=== PATIENT | female | born 1980 | race Hispanic/Latino ===

== ENCOUNTER 2021-10-10 07:43 | Inpatient (IN) | payer MEDICAID, OTHER ==
[2021-10-10] MEDS ORDERED: VANCOMYCIN 2,000 MG in SODIUM CHLORIDE 0.9% 500 ML 500 ML IV ONE (09:19)
[2021-10-10] MEDS ORDERED: SODIUM CHLORIDE 0.9% 1000 ML 1,000 ML IV ONE (09:21)
--- NOTE | 2021-10-10 09:32 | Emergency Department Report ---
- General Chief Complaint: Wound/Laceration Stated Complaint: SPIDER BITE/LEFT LEG Time Seen by Provider: 10/10/21 09:13 Source: patient, EMS Mode of arrival: Stretcher Limitations: No Limitations - History of Present Illness Initial Comments: Chief complaint: Weak, leg infection HPI: Is a 41-year-old female with history of diabetes mellitus who presents with spider bite 1 month ago to right lower extremity. She was treated at [facility] with oral antibiotics. She then followed up with her physician in [place] with a second course of antibiotics. She has persistent right leg infection. She did not see a spider personally. Initially she had "2 holes" in her lower leg Last night she became generally weak. She just felt generally unwell. She is does not take any medication. She explains that she "may have diabetes". 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 She lives with her and 3 children. She has been vaccinated against COVID-19. She lives in [facility]. She arrived via EMS. -: Gradual, month(s) (1 month) Location: other (Right lower extremity infection) Extremity Location: Right: Lower Leg Context: other (Suspected spider bite) Associated Symptoms: pain, other (Weakness malaise) - Related Data Allergies Allergy/AdvReac Type Severity Reaction Status Date / Time No Known Allergies Allergy Verified 10/10/21 09:25 ED Review of Systems ROS: Stated complaint: SPIDER BITE/LEFT LEG Other details as noted in HPI Comment: All other systems reviewed and negative Constitutional: malaise. denies: chills, fever Respiratory: denies: cough, shortness of breath Cardiovascular: denies: chest pain Gastrointestinal: denies: abdominal pain, nausea, vomiting Skin: rash, lesions ED Past Medical Hx - Past Medical History Previous Medical History?: Yes Hx Diabetes: Yes - Surgical History Past Surgical History?: No - Social History Smoking Status: Current Some Day Smoker Substance Use Type: None ED Physical Exam - General Limitations: No Limitations General appearance: in no apparent distress, lethargic, other (Pale) - Head Head exam: Present: atraumatic, normocephalic - Eye Eye exam: Present: normal appearance - ENT ENT exam: Present: mucous membranes dry - Neck Neck exam: Present: normal inspection, full ROM - Respiratory Respiratory exam: Present: normal lung sounds bilaterally. Absent: respiratory distress, wheezes, rales, rhonchi - Cardiovascular Cardiovascular Exam: Present: regular rate, normal rhythm, normal heart sounds. Absent: systolic murmur, diastolic murmur, rubs, gallop - GI/Abdominal GI/Abdominal exam: Present: soft. Absent: distended, tenderness, guarding, rebound - Extremities Exam Extremities exam: Present: other (Extremities without edema or deformity) - Neurological Exam Neurological exam: Present: alert, oriented X3 - Psychiatric Psychiatric exam: Present: depressed, flat affect - Skin Skin exam: Present: pallor, other (Large 15 cm x 8 cm area of erythema edema cerebral purulent ulcerations with large central ulcer with purulent drainage) ED Course Vital Signs 10/10/21 10/10/21 10/10/21 07:57 08:01 08:08 Temperature 98.6 F Pulse Rate 81 82 81 Respiratory 22 17 18 Rate Blood Pressure 106/64 O2 Sat by Pulse 96 99 Oximetry 10/10/21 10/10/21 10/10/21 08:15 08:31 08:45 Temperature Pulse Rate 84 87 85 Respiratory 15 17 16 Rate Blood Pressure 124/72 112/75 119/85 O2 Sat by Pulse 96 96 96 Oximetry 10/10/21 10/10/21 10/10/21 09:01 09:15 09:31 Temperature Pulse Rate 83 78 Respiratory 16 24 Rate Blood Pressure 128/83 116/73 114/75 O2 Sat by Pulse 97 98 97 Oximetry 10/10/21 10/10/21 10/10/21 09:45 09:46 10:01 Temperature Pulse Rate 75 Respiratory 16 Rate Blood Pressure 124/80 119/83 O2 Sat by Pulse 96 99 97 Oximetry 10/10/21 10/10/21 10/10/21 10:15 10:31 10:45 Temperature Pulse Rate 80 79 Respiratory 20 14 Rate Blood Pressure 131/91 114/96 122/98 O2 Sat by Pulse 96 97 96 Oximetry 10/10/21 10/10/21 10/10/21 11:01 11:15 11:31 Temperature Pulse Rate 84 80 85 Respiratory 18 17 22 Rate Blood Pressure 135/100 136/102 136/102 O2 Sat by Pulse 96 97 94 Oximetry ED Medical Decision Making - Lab Data Result diagrams: 10/10/21 10:05 10/10/21 10:05 - Radiology Data Radiology results: report reviewed Patient Name: MARY SOL Gender: Female Date of : 1980 Referring Provider: JOSEFA MAXWELL Organization: [facility] Accession Number: [id number] Requested Date: October 10, 2021 09:21 Report Status: Final Requested Procedure: 1 Procedure Description: XR tibia fibula 2V RT Modality: XR Findings Reporting MD: Peter Briones Dictation Time: October 10, 2021 08:57 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 COMPARISON: None available. FINDINGS: BONES and JOINT(S): No acute fracture or subluxation. Calcaneal enthesophytes are noted without other significant arthritis. SOFT TISSUES: No significant abnormality. ADDITIONAL FINDINGS: None. IMPRESSION: No radiographic evidence of a right leg infection. Please correlate with the clinical findings. Signer Name: Peetr Briones MD Signed: 10/10/2021 8:57 AM Workstation Name: [id number] - Medical Decision Making 1. Cellulitis with purulent ulceration: Radiograph without soft tissue gas. [place] 2 courses of outpatient antibiotics. Vancomycin initiated emergency department. 2. Transaminitis: Patient has taken Tylenol daily since June. 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 I spoke with toxicology energy consultant at poison control center. Physician physics and astronomy professor recommended Acetadote 21-hour protocol. If AST ALT remain greater than 100 then Acetadote should be continued for another 16 hours. Also if INR is elevated, Acetadote should be continued for 16 hours beyond the original protocol. Critical care attestation.: If time is entered above; I have spent that time in minutes in the direct care of this critically ill patient, excluding procedure time. ED Disposition Clinical Impression: Acetaminophen toxicity, Cellulitis of right leg, Ulcer of right leg Disposition: ADMITTED INPATIENT Is pt being admited?: Yes Does the pt Need Aspirin: No Condition: Stable
[2021-10-10] MEDS ORDERED: VANCOMYCIN PHARMACY TO DOSE IV SCH (10:00)
--- NOTE | 2021-10-10 10:00 | XRay Report ---
CHEST 1 VIEW 10/10/2021 9:23 AM INDICATION / CLINICAL INFORMATION: Suspected sepsis. COMPARISON: None available. FINDINGS: SUPPORT DEVICES: None. HEART / MEDIASTINUM: No significant abnormality. LUNGS / PLEURA: No significant pulmonary abnormality. No significant pleural effusion. No pneumothora x. ADDITIONAL FINDINGS: No significant additional findings. IMPRESSION: 1. No acute abnormality of the chest. Signer Name: Peter Briones MD Signed: 10/10/2021 9:56 AM Workstation Name: [id number]
--- NOTE | 2021-10-10 10:02 | XRay Report ---
RIGHT TIBIA/FIBULA 2 VIEWS INDICATION / CLINICAL INFORMATION: Right leg infection. COMPARISON: None available. FINDINGS: BONES and JOINT(S): No acute fracture or subluxation. Calcaneal enthesophytes are noted without other significant arthritis. SOFT TISSUES: No significant abnormality. ADDITIONAL FINDINGS: None. IMPRESSION: No radiographic evidence of a right leg infection. Please correlate with the clinical findings. Signer Name: Peter Briones MD Signed: 10/10/2021 9:57 AM Workstation Name: [id number]
[2021-10-10 10:31] LABS: Basophils % (Auto) 0.6 % (0.0-1.8); Eosinophils % (Auto) 0.1 % (0.0-4.3); Hematocrit 41.8 % (30.3-42.9); Lymphocytes # (Auto) 0.5 K/mm3 (1.2-5.4); Lymphocytes % (Auto) 10.9 % (13.4-35.0); Mean Corpuscular HGB Conc 31 % (30-34); Mean Corpuscular Volume 85 fl (79-97); Monocytes # (Auto) 0.3 K/mm3 (0.0-0.8); Monocytes % (Auto) 5.7 % (0.0-7.3); Red Blood Count 4.93 M/mm3 (3.65-5.03); Red Cell Distribution Width 15.5 % (13.2-15.2)
[2021-10-10 10:37] LABS: Platelet Count 33 K/mm3 (140-440)
[2021-10-10] MEDS ORDERED: HYDROcodone/ACETAMINOPHEN 5-325 MG TAB PO ONE (10:50)
[2021-10-10] MEDS ORDERED: IBUPROFEN 800 MG TAB PO ONE (10:50)
[2021-10-10 11:22] LABS: Alanine Aminotransferase 657 units/L (7-56); Albumin 3.8 g/dL (3.9-5); Blood Urea Nitrogen 11 mg/dL (7-17); Calcium 8.8 mg/dL (8.4-10.2); Hemolysis Index 4
[2021-10-10 11:32] LABS: BUN/Creatinine Ratio 18
[2021-10-10] MEDS ORDERED: HYDROmorphone 1 MG/1 ML INJ IV PRN (11:59)
[2021-10-10] MEDS ORDERED: oxyCODONE /ACETAMINOPHEN 5-325MG TAB PO PRN (11:59)
[2021-10-10] MEDS ORDERED: ALBUTEROL 2.5 MG/3 ML NEBU IH PRN (11:59)
[2021-10-10] MEDS ORDERED: ACETAMINOPHEN 325 MG TAB PO PRN (11:59)
--- NOTE | 2021-10-10 11:59 | History and Physical Report ---
History of Present Illness Chief complaint: My leg has a hole in it History of present illness: 41 YO Female with Obesity Hypoventilation Syndrome, DM, Nicotine Dependence presents to ED for evaluation. Patient is confused with diminished cognition at the time my evaluation and provides minimal history. Patient reports "my leg has a hole in it and I do not feel good". Additional history taken by EMS staff, ED staff, as well as the patient who was made available by telephone for interview. As per family the patient was found to have increased weakness and confusion this a.m. EMS was notified and upon arrival the patient was found to be in distress and subsequent transported to [facility] for further care and evaluation of the aforementioned symptoms. The patient was seen and evaluated in the emergency department. All lab and imaging studies reviewed. Patient found to have right lower extremity cellulitis with failure of outpatient oral antibiotic therapy, metabolic acidosis systemic plantar response syndrome, and elevated liver function test secondary to Tylenol toxicity. Poison control notified in the emergency department. Patient initiated on Acetadote 21-hour protocol. No further history is obtainable. Patient has diminished cognition at the time my evaluation but has a positive gag reflex and is able to protect her airway without difficulty. No prior admission for review. No medication listed at time of admission for reconciliation. Advanced care planning conducted in ED. Patient is fully vaccinated against COVID-19. Past History Past Medical History: diabetes, hypertension Past Surgical History: No surgical history, Other (Reviewed) Social history: , lives with family Family history: hypertension Medications and Allergies Allergies Allergy/AdvReac Type Severity Reaction Status Date / Time No Known Allergies Allergy Verified 10/10/21 09:25 Review of Systems ROS unobtainable: due to mental status Exam - Constitutional Vitals: Temp Pulse Resp BP Pulse Ox 98.6 F 85 22 136/102 94 10/10/21 08:08 10/10/21 11:31 10/10/21 11:31 10/10/21 11:31 10/10/21 11:31 General appearance: Present: mild distress, obese - EENT Eyes: Present: PERRL ENT: clear oral mucosa, hearing decreased - Neck Neck: Present: supple, normal ROM - Respiratory Respiratory effort: normal Respiratory: bilateral: CTA - Cardiovascular Heart Sounds: Present: S1 & S2. Absent: rub, click - Extremities Extremities: pulses symmetrical, No edema Extremity abnormal: edema, ulceration, erythema, other (Right lower extremity) Peripheral Pulses: within normal limits - Abdominal General gastrointestinal: Present: soft, non-tender, non-distended, normal bowel sounds Female genitourinary: Present: normal - Integumentary Integumentary: Present: clear, dry - Musculoskeletal Musculoskeletal: generalized weakness - Psychiatric Psychiatric: no appropriate mood/affect, no intact judgment & insight, no memory intact - Neurologic Neurologic: CNII-XII intact, no focal deficits, moves all extremities, no gait normal Results - Labs CBC & Chem 7: 10/10/21 10:05 10/10/21 10:05 Labs: Abnormal lab results 10/10/21 10/10/21 10/10/21 Range/Units 07:52 10:05 10:05 MCH 26 L (28-32) pg RDW 15.5 H (13.2-15.2) % Plt Count 33 L (140-440) K/mm3 Lymph % (Auto) 10.9 L (13.4-35.0) % Lymph # (Auto) 0.5 L (1.2-5.4) K/mm3 Seg Neutrophils % 82.7 H (40.0-70.0) % VBG pH (7.320-7.420) Carbon Dioxide 17 L (22-30) mmol/L Glucose 249 H (65-100) mg/dL POC Glucose 256 H (70-105) mg/dL AST 712 H (5-40) units/L ALT 657 H (7-56) units/L Albumin 3.8 L (3.9-5) g/dL 10/10/21 Range/Units 10:05 MCH (28-32) pg RDW (13.2-15.2) % Plt Count (140-440) K/mm3 Lymph % (Auto) (13.4-35.0) % Lymph # (Auto) (1.2-5.4) K/mm3 Seg Neutrophils % (40.0-70.0) % VBG pH 7.310 L (7.320-7.420) Carbon Dioxide (22-30) mmol/L Glucose (65-100) mg/dL POC Glucose (70-105) mg/dL AST (5-40) units/L ALT (7-56) units/L Albumin (3.9-5) g/dL Assessment and Plan - Patient Problems (1) Metabolic encephalopathy Current Visit: Yes Status: Acute Plan to address problem: Seizure precautions, aspiration precautions, fall precautions, neuro check, supportive care. (2) Metabolic acidosis Current Visit: Yes Status: Acute Plan to address problem: IV fluid resuscitation therapy, supportive care, continue medical management. (3) Systemic inflammatory response syndrome Current Visit: Yes Status: Acute Plan to address problem: CBC, CMP, IV antibiotic therapy, supportive care. (4) Nicotine dependence Current Visit: Yes Status: Acute Plan to address problem: Smoking cessation, supportive care. Behavior change counseling, +15 minutes. (5) Acetaminophen toxicity Current Visit: Yes Status: Acute Qualifiers: Encounter type: initial encounter Plan to address problem: Acetaminophen level, Acetadote protocol, repeat acetaminophen and LFT levels at 1000 hrs. in a.m. if AST/ALT greater than 100 or INR greater than 1.5 then repeat 16-hour Acetadote therapy. (6) Cellulitis of right leg Current Visit: Yes Status: Acute Plan to address problem: IV antibiotic therapy, supportive care, wound care consulted. Vancomycin, pharmacy dosing. Wound care consulted. (7) DVT prophylaxis Current Visit: Yes Status: Acute Plan to address problem: SCDs bilateral lower extremities while in bed (8) Advance care planning Current Visit: Yes Status: Acute Plan to address problem: Disease education conducted, care plan discussed, diagnoses discussed, prognosis discussed, patient family acknowledge understanding and agreement with care niesha n, +30 minutes.
[2021-10-10] MEDS ORDERED: ACETADOTE (ACETYLCYSTEINE IV) 15,000 MG in DEXTROSE 5% IN WATER 200 ML IV ONE (12:29)
[2021-10-10 12:52] LABS: Bilirubin,Urine SM (Negative); Blood,Urine NEG (Negative); Color,Urine Amber (Yellow); Mucus,Urine 1+ /HPF
[2021-10-10 12:55] LABS: Ictotest,Urine Negative (Negative)
[2021-10-10] MEDS ORDERED: ACETADOTE(ACETYLCYSTEINE IV) 5,000 MG in DEXTROSE 5% IN WATER 500 ML IV ONE (13:29)
[2021-10-10 14:32] LABS: INR 1.56 (0.87-1.13)
[2021-10-10 14:33] LABS: Partial Thromboplastin Time 31.6 Sec. (24.2-36.6)
[2021-10-10] MEDS ORDERED: hydrALAZINE 20 MG/1 ML INJ IV ONE (15:18)
[2021-10-10] MEDS: ONDANSETRON 4 MG/2 ML INJ IV PRN (15:40)
[2021-10-10] MEDS ORDERED: ACETADOTE(ACETYLCYSTEINE IV) 10,000 MG in DEXTROSE 5% IN WATER 1,000 ML IV ONE (17:29)
[2021-10-10] MEDS: FAMOTIDINE 20 MG TAB PO SCH (21:39)
[2021-10-10] MEDS: VANCOMYCIN 2,000 MG in SODIUM CHLORIDE 0.9% 500 ML 500 ML IV SCH (23:38)
[2021-10-11 05:39] LABS: Basophils % (Auto) 0.4 % (0.0-1.8); Eosinophils % (Auto) 0.3 % (0.0-4.3); Lymphocytes # (Auto) 0.7 K/mm3 (1.2-5.4); Mean Corpuscular HGB Conc 31 % (30-34); Mean Corpuscular Volume 85 fl (79-97); Monocytes # (Auto) 0.5 K/mm3 (0.0-0.8); Monocytes % (Auto) 7.9 % (0.0-7.3); Red Blood Count 5.13 M/mm3 (3.65-5.03); Red Cell Distribution Width 15.8 % (13.2-15.2)
[2021-10-11 05:55] LABS: Hematocrit 43.5 % (30.3-42.9); Hemoglobin 13.5 gm/dl (10.1-14.3); Platelet Count 72 K/mm3 (140-440)
[2021-10-11 05:59] LABS: Blood Urea Nitrogen 7 mg/dL (7-17); Calcium 7.7 mg/dL (8.4-10.2); Hemolysis Index 12
[2021-10-11 06:01] LABS: BUN/Creatinine Ratio 23
[2021-10-11] MEDS: FAMOTIDINE 20 MG TAB PO SCH ×2 (10:13→22:45)
[2021-10-11] MEDS: POTASSIUM CHLORIDE ER 20 MEQ TAB PO SCH ×2 (10:13→15:04)
[2021-10-11] MEDS: VANCOMYCIN 2,000 MG in SODIUM CHLORIDE 0.9% 500 ML 500 ML IV SCH ×2 (10:13→22:45)
[2021-10-11 10:46] LABS: INR 2.69 (0.87-1.13)
[2021-10-11 10:53] LABS: Albumin 3.3 g/dL (3.9-5); Bilirubin,Direct 1.8 mg/dL (0-0.2)
[2021-10-11 10:54] LABS: Albumin 3.3 g/dL (3.9-5); Blood Urea Nitrogen 7 mg/dL (7-17); Hemolysis Index 4
[2021-10-11 10:59] LABS: BUN/Creatinine Ratio 23
[2021-10-11 11:09] LABS: Alanine Aminotransferase 1856 units/L (7-56)
--- NOTE | 2021-10-11 12:18 | Progress Note ---
Subjective Date of service: 10/11/21 Interval history: 41 YO Female with Obesity Hypoventilation Syndrome, DM, Nicotine Dependence presents to ED for evaluation. Patient is confused with diminished cognition at the time my evaluation and provides minimal history. Patient reports "my leg has a hole in it and I do not feel good". Additional history taken by EMS staff, ED staff, as well as the patient who was made available by telephone for interview. As per family the patient was found to have increased weakness and confusion this a.m. EMS was notified and upon arrival the patient was found to be in distress and subsequent transported to [facility] for further care and evaluation of the aforementioned symptoms. The patient was seen and evaluated in the emergency department. All lab and imaging studies reviewed. Patient found to have right lower extremity cellulitis with failure of outpatient oral antibiotic therapy, metabolic acidosis systemic plantar response syndrome, and elevated liver function test secondary to Tylenol toxicity. Poison control notified in the emergency department. Patient initiated on Acetadote 21-hour protocol. No further history is obtainable. Patient has diminished cognition at the time my evaluation but has a positive gag reflex and is able to protect her airway without difficulty. No prior admission for review. No medication listed at time of admission for reconciliation. Advanced care planning conducted in ED. Patient is fully vaccinated against COVID-19. 10/11 patient is resting in the bed, not in any distress, complains of pain in the right leg, she denies any fever or chills, denies nausea vomiting or abdominal pain. Denies dysuria. Lab results reviewed. Assessment and plan Cellulitis right leg Patient states that she had a spider bite in June on her right leg and since then it has progressed to the present state She states she is took antibiotics as an outpatient with no improvement Wound care consulted She was started on vancomycin IV We will add Rocephin We will request ID consult Blood cultures no growth in 24 hours Metabolic encephalopathy Resolved Patient is alert and oriented x3 Acetaminophen toxicity Mild Transaminitis/elevated INR/thrombocytopenia No old labs to compare with Suspect secondary to acetaminophen toxicity Monitor LFTs Consider GI consult if not trending down Platelets [id number] today Hypokalemia potassium supplements ordered Monitor electrolytes Tobacco abuse Smoking cessation counseling was done DVT prophylaxis SCDs Objective - Constitutional Vitals: Vital Signs - 12hr 10/11/21 10/11/21 04:00 10:00 Temperature 98.3 F Pulse Rate 94 H O2 Sat by Pulse 98 Oximetry General appearance: Present: no acute distress, well-nourished - EENT Eyes: PERRL, EOM intact ENT: hearing intact, clear oral mucosa - Neck Neck: supple, normal ROM - Respiratory Respiratory effort: normal Respiratory: bilateral: CTA - Cardiovascular Rhythm: regular Heart Sounds: Present: S1 & S2 Extremities: abnormal (Dressing with pressure wrap on the right leg) - Gastrointestinal General gastrointestinal: Present: soft, non-tender Rectal Exam: deferred - Integumentary Integumentary: clear - Neurologic Neurologic: focal deficits, moves all extremities - Psychiatric Psychiatric: appropriate mood/affect - Labs CBC & Chem 7: 10/11/21 04:53 10/11/21 10:19 Labs: Abnormal lab results 10/10/21 10/10/21 10/10/21 Range/Units 13:22 13:22 13:22 RBC (3.65-5.03) M/mm3 Hct (30.3-42.9) % MCH (28-32) pg RDW (13.2-15.2) % Plt Count (140-440) K/mm3 Lymph % (Auto) (13.4-35.0) % [place] % (Auto) (0.0-7.3) % Lymph # (Auto) (1.2-5.4) K/mm3 Seg Neutrophils % (40.0-70.0) % PT 20.2 H (12.2-14.9) Sec. INR 1.56 H (0.87-1.13) Sodium (137-145) mmol/L Potassium (3.6-5.0) mmol/L Carbon Dioxide (22-30) mmol/L Creatinine (0.6-1.2) mg/dL Glucose (65-100) mg/dL POC Glucose (70-105) mg/dL Lactic Acid 3.10 H* (0.7-2.0) mmol/L Calcium (8.4-10.2) mg/dL Total Bilirubin (0.1-1.2) mg/dL Direct Bilirubin (0-0.2) mg/dL AST (5-40) units/L ALT (7-56) units/L Alkaline Phosphatase (35-129) units/L Albumin (3.9-5) g/dL Ur Specific [place] (1.003-1.030) Salicylates (2.8-20.0) mg/dL Acetaminophen 35.5 H (10.0-30.0) ug/mL 10/10/21 10/10/21 10/10/21 Range/Units 13:22 18:04 23:46 RBC (3.65-5.03) M/mm3 Hct (30.3-42.9) % MCH (28-32) pg RDW (13.2-15.2) % Plt Count (140-440) K/mm3 Lymph % (Auto) (13.4-35.0) % [place] % (Auto) (0.0-7.3) % Lymph # (Auto) (1.2-5.4) K/mm3 Seg Neutrophils % (40.0-70.0) % PT (12.2-14.9) Sec. INR (0.87-1.13) Sodium (137-145) mmol/L Potassium (3.6-5.0) mmol/L Carbon Dioxide (22-30) mmol/L Creatinine (0.6-1.2) mg/dL Glucose (65-100) mg/dL POC Glucose 217 H 185 H (70-105) mg/dL Lactic Acid (0.7-2.0) mmol/L Calcium (8.4-10.2) mg/dL Total Bilirubin (0.1-1.2) mg/dL Direct Bilirubin (0-0.2) mg/dL AST (5-40) units/L ALT (7-56) units/L Alkaline Phosphatase (35-129) units/L Albumin (3.9-5) g/dL Ur Specific [place] (1.003-1.030) Salicylates < 0.3 L (2.8-20.0) mg/dL Acetaminophen (10.0-30.0) ug/mL 10/10/21 10/11/21 10/11/21 Range/Units Unknown 04:53 04:53 RBC 5.13 H (3.65-5.03) M/mm3 Hct 43.5 H (30.3-42.9) % MCH 26 L (28-32) pg RDW 15.8 H (13.2-15.2) % Plt Count 72 L D (140-440) K/mm3 Lymph % (Auto) 11.0 L (13.4-35.0) % [place] % (Auto) 7.9 H (0.0-7.3) % Lymph # (Auto) 0.7 L (1.2-5.4) K/mm3 Seg Neutrophils % 80.4 H (40.0-70.0) % PT (12.2-14.9) Sec. INR (0.87-1.13) Sodium (137-145) mmol/L Potassium 3.0 L D (3.6-5.0) mmol/L Carbon Dioxide 19 L (22-30) mmol/L Creatinine 0.3 L (0.6-1.2) mg/dL Glucose 119 H (65-100) mg/dL POC Glucose (70-105) mg/dL Lactic Acid (0.7-2.0) mmol/L Calcium 7.7 L (8.4-10.2) mg/dL Total Bilirubin (0.1-1.2) mg/dL Direct Bilirubin (0-0.2) mg/dL AST (5-40) units/L ALT (7-56) units/L Alkaline Phosphatase (35-129) units/L Albumin (3.9-5) g/dL Ur Specific [place] 1.053 H (1.003-1.030) Salicylates (2.8-20.0) mg/dL Acetaminophen (10.0-30.0) ug/mL 10/11/21 10/11/21 10/11/21 Range/Units 06:34 10:19 10:19 RBC (3.65-5.03) M/mm3 Hct (30.3-42.9) % MCH (28-32) pg RDW (13.2-15.2) % Plt Count (140-440) K/mm3 Lymph % (Auto) (13.4-35.0) % [place] % (Auto) (0.0-7.3) % Lymph # (Auto) (1.2-5.4) K/mm3 Seg Neutrophils % (40.0-70.0) % PT 30.8 H (12.2-14.9) Sec. INR 2.69 H (0.87-1.13) Sodium 136 L (137-145) mmol/L Potassium 3.3 L (3.6-5.0) mmol/L Carbon Dioxide 18 L (22-30) mmol/L Creatinine 0.3 L (0.6-1.2) mg/dL Glucose 122 H (65-100) mg/dL POC Glucose 109 H (70-105) mg/dL Lactic Acid (0.7-2.0) mmol/L Calcium 8.0 L (8.4-10.2) mg/dL Total Bilirubin 2.30 H (0.1-1.2) mg/dL Direct Bilirubin (0-0.2) mg/dL AST 1290 H (5-40) units/L ALT 1856 H (7-56) units/L Alkaline Phosphatase 137 H (35-129) units/L Albumin 3.3 L (3.9-5) g/dL Ur Specific [place] (1.003-1.030) Salicylates (2.8-20.0) mg/dL Acetaminophen (10.0-30.0) ug/mL 10/11/ Range/Units 10:19 RBC (3.65-5.03) M/mm3 Hct (30.3-42.9) % MCH (28-32) pg RDW (13.2-15.2) % Plt Count (140-440) K/mm3 Lymph % (Auto) (13.4-35.0) % [place] % (Auto) (0.0-7.3) % Lymph # (Auto) (1.2-5.4) K/mm3 Seg Neutrophils % (40.0-70.0) % PT (12.2-14.9) Sec. INR (0.87-1.13) Sodium (137-145) mmol/L Potassium (3.6-5.0) mmol/L Carbon Dioxide (22-30) mmol/L Creatinine (0.6-1.2) mg/dL Glucose (65-100) mg/dL POC Glucose (70-105) mg/dL Lactic Acid (0.7-2.0) mmol/L Calcium (8.4-10.2) mg/dL Total Bilirubin 2.30 H (0.1-1.2) mg/dL Direct Bilirubin 1.8 H (0-0.2) mg/dL AST 1298 H (5-40) units/L ALT 1896 H (7-56) units/L Alkaline Phosphatase 134 H (35-129) units/L Albumin 3.3 L (3.9-5) g/dL Ur Specific [place] (1.003-1.030) Salicylates (2.8-20.0) mg/dL Acetaminophen (10.0-30.0) ug/mL
--- NOTE | 2021-10-11 12:53 | Consultation ---
History of Present Illness - Reason for Consult Consult date: 10/11/21 cellulitis Requesting physician: ARIANA PRO - History of Present Illness The patient is a 41-year-old female with diabetes came into the emergency room with complaints of worsening infection in her right leg. She reports a possible spider bite about a month ago the right leg, treated developed an infection and [place] [facility] [place] then received a second round of antibiotics from her PCP. Due to worsening, she came here. Labs revealed normal WBC, platelet count is low. INR was found to be 1.5, worsened to 2.6 today, LFTs with AST 712, ALT 657, albumin 3.8, bilirubin 0.6. Lactic acid 3.1. AST and ALT have continued to worsen, bilirubin up to 2.3. Tylenol level was found to be 35.5 (normal range 10-30). Was initiated on N-acetylcysteine. ID was consulted for cellulitis management. She was not going to wound care or taking her DM meds well. She does report taking a lot of tylenol over the last few weeks. Review of Systems: General: no fevers,chills or rigors HEENT: no new visual disturbance Respiratory: No cough, sputum, hemoptysis or shortness of breath Cardiovascular: No chest pain, syncope Gastrointestinal: No nausea, vomiting or diarrhea Genitourinary: No dysuria or hematuria Musculoskeletal: No new or worsening neck pain or back pain Neurologic: No headaches, seizures Hematologic: No easy bruising or bleeding Endocrine: No night sweats or acute weight loss Skin: negative for rash, jaundice Psychiatric: No suicidal or homicidal ideation Past History Past Medical History: diabetes, hypertension Past Surgical History: No surgical history, Other (Reviewed) Social history: , lives with family Family history: hypertension Medications and Allergies Allergies Allergy/AdvReac Type Severity Reaction Status Date / Time No Known Allergies Allergy Verified 10/10/21 09:25 Active Meds: Active Medications Albuterol (Albuterol 2.5 Mg/3 Ml Nebu) 2.5 mg IH Q4HRT PRN PRN Reason: Shortness Of Breath Famotidine (Famotidine 20 Mg Tab) 20 mg PO BID DEANDRE Last Admin: 10/11/21 10:13 Dose: 20 mg Documented by: Vancomycin HCl 2,000 mg/ (Sodium Chloride) 540 mls @ 250 mls/hr IV Q12H [facility] Last Admin: 10/11/21 10:13 Dose: 250 mls/hr Documented by: Ceftriaxone Sodium (Rocephin/Ns 1 Gm/50 Ml) 1 gm in 50 mls @ 100 mls/hr IV Q24H [facility]; Protocol Ondansetron HCl (Ondansetron 4 Mg/2 Ml Inj) 4 mg IV Q8H PRN PRN Reason: Nausea And Vomiting Last Admin: 10/10/21 15:40 Dose: 4 mg Documented by: Oxycodone/Acetaminophen (Oxycodone /Acetaminophen 5-325mg Tab) 1 tab PO Q4HR PRN PRN Reason: Pain, Moderate (4-6) Potassium Chloride (Potassium Chloride Er 20 Meq Tab) 40 meq PO Q4H [facility] Stop: 10/11/21 13:01 Last Admin: 10/11/21 10:13 Dose: 40 meq Documented by: Sodium Chloride (Sodium Chloride 0.9% 10 Ml Flush Syringe) 10 ml IV BID [facility] Last Admin: 10/11/21 10:13 Dose: 10 ml Documented by: Sodium Chloride (Sodium Chloride 0.9% 10 Ml Flush Syringe) 10 ml IV PRN PRN PRN Reason: LINE FLUSH Physical Examination - Physical Exam Narrative exam: Physical Exam: Constitutional: Alert, cooperative. No acute distress Head, Ears, Nose: Normocephalic, atraumatic. External ears, nose normal Eyes: Conjunctivae/corneas clear. No icterus. No ptosis. Neck: Supple, no meningeal signs Cardiovascular: S1, S2 + Respiratory: Good air entry, clear to auscultation bilaterally GI: Soft, non-tender; bowel sounds normal. No peritoneal signs Musculoskeletal: Right foot with superficial wound, erythema around it no obvious purulence. Dressing + Skin: No rash or abscess Hem/Lymphatic: No palpable cervical or supraclavicular nodes. No lymphangitis Psych: Mood ok. Affect normal Neurological: Awake, alert, oriented. No gross abnormality - Constitutional Vitals: Vital Signs Temp Pulse Resp BP Pulse Ox 97.5 F L 94 H 10 L 139/89 98 10/11/21 12:00 10/11/21 10:00 10/10/21 21:31 10/10/21 21:31 10/11/21 04:00 Temperature -Last 24 Hours Temperature 97.5 F Temperature 97.6 F Temperature 98.3 F Temperature 98.6 F Temperature 98.4 F Temperature 97.8 F Results - Labs CBC & Chem 7: 10/11/21 04:53 10/11/21 10:19 Labs: Abnormal lab results 10/10/21 10/10/21 10/10/21 Range/Units 13:22 13:22 13:22 RBC (3.65-5.03) M/mm3 Hct (30.3-42.9) % MCH (28-32) pg RDW (13.2-15.2) % Plt Count (140-440) K/mm3 Lymph % (Auto) (13.4-35.0) % Amador % (Auto) (0.0-7.3) % Lymph # (Auto) (1.2-5.4) K/mm3 Seg Neutrophils % (40.0-70.0) % PT 20.2 H (12.2-14.9) Sec. INR 1.56 H (0.87-1.13) Sodium (137-145) mmol/L Potassium (3.6-5.0) mmol/L Carbon Dioxide (22-30) mmol/L Creatinine (0.6-1.2) mg/dL Glucose (65-100) mg/dL POC Glucose (70-105) mg/dL Lactic Acid 3.10 H* (0.7-2.0) mmol/L Calcium (8.4-10.2) mg/dL Total Bilirubin (0.1-1.2) mg/dL Direct Bilirubin (0-0.2) mg/dL AST (5-40) units/L ALT (7-56) units/L Alkaline Phosphatase (35-129) units/L Albumin (3.9-5) g/dL Ur Specific Sealy (1.003-1.030) Salicylates (2.8-20.0) mg/dL Acetaminophen 35.5 H (10.0-30.0) ug/mL 10/10/21 10/10/21 10/10/21 Range/Units 13: 18:04 23:46 RBC (3.65-5.03) M/mm3 Hct (30.3-42.9) % MCH (28-32) pg RDW (13.2-15.2) % Plt Count (140-440) K/mm3 Lymph % (Auto) (13.4-35.0) % Amador % (Auto) (0.0-7.3) % Lymph # (Auto) (1.2-5.4) K/mm3 Seg Neutrophils % (40.0-70.0) % PT (12.2-14.9) Sec. INR (0.87-1.13) Sodium (137-145) mmol/L Potassium (3.6-5.0) mmol/L Carbon Dioxide (22-30) mmol/L Creatinine (0.6-1.2) mg/dL Glucose (65-100) mg/dL POC Glucose 217 H 185 H (70-105) mg/dL Lactic Acid (0.7-2.0) mmol/L Calcium (8.4-10.2) mg/dL Total Bilirubin (0.1-1.2) mg/dL Direct Bilirubin (0-0.2) mg/dL AST (5-40) units/L ALT (7-56) units/L Alkaline Phosphatase (35-129) units/L Albumin (3.9-5) g/dL Ur Specific Sealy (1.003-1.030) Salicylates < 0.3 L (2.8-20.0) mg/dL Acetaminophen (10.0-30.0) ug/mL 10/10/21 10/11/21 10/11/21 Range/Units Unknown 04:53 04:53 RBC 5.13 H (3.65-5.03) M/mm3 Hct 43.5 H (30.3-42.9) % MCH 26 L (28-32) pg RDW 15.8 H (13.2-15.2) % Plt Count 72 L D (140-440) K/mm3 Lymph % (Auto) 11.0 L (13.4-35.0) % Amador % (Auto) 7.9 H (0.0-7.3) % Lymph # (Auto) 0.7 L (1.2-5.4) K/mm3 Seg Neutrophils % 80.4 H (40.0-70.0) % PT (12.2-14.9) Sec. INR (0.87-1.13) Sodium (137-145) mmol/L Potassium 3.0 L D (3.6-5.0) mmol/L Carbon Dioxide 19 L (22-30) mmol/L Creatinine 0.3 L (0.6-1.2) mg/dL Glucose 119 H (65-100) mg/dL POC Glucose (70-105) mg/dL Lactic Acid (0.7-2.0) mmol/L Calcium 7.7 L (8.4-10.2) mg/dL Total Bilirubin (0.1-1.2) mg/dL Direct Bilirubin (0-0.2) mg/dL AST (5-40) units/L ALT (7-56) units/L Alkaline Phosphatase (35-129) units/L Albumin (3.9-5) g/dL Ur Specific [place] 1.053 H (1.003-1.030) Salicylates (2.8-20.0) mg/dL Acetaminophen (10.0-30.0) ug/mL 10/11/21 10/11/21 10/11/21 Range/Units 06:34 10:19 10:19 RBC (3.65-5.03) M/mm3 Hct (30.3-42.9) % MCH (28-32) pg RDW (13.2-15.2) % Plt Count (140-440) K/mm3 Lymph % (Auto) (13.4-35.0) % Amador % (Auto) (0.0-7.3) % Lymph # (Auto) (1.2-5.4) K/mm3 Seg Neutrophils % (40.0-70.0) % PT 30.8 H (12.2-14.9) Sec. INR 2.69 H (0.87-1.13) Sodium 136 L (137-145) mmol/L Potassium 3.3 L (3.6-5.0) mmol/L Carbon Dioxide 18 L (22-30) mmol/L Creatinine 0.3 L (0.6-1.2) mg/dL Glucose 122 H (65-100) mg/dL POC Glucose 109 H (70-105) mg/dL Lactic Acid (0.7-2.0) mmol/L Calcium 8.0 L (8.4-10.2) mg/dL Total Bilirubin 2.30 H (0.1-1.2) mg/dL Direct Bilirubin (0-0.2) mg/dL AST 1290 H (5-40) units/L ALT 1856 H (7-56) units/L Alkaline Phosphatase 137 H (35-129) units/L Albumin 3.3 L (3.9-5) g/dL Ur Specific Se[place] (1.003-1.030) Salicylates (2.8-20.0) mg/dL Acetaminophen (10.0-30.0) ug/mL 10/11/21 Range/Units 10:19 RBC (3.65-5.03) M/mm3 Hct (30.3-42.9) % MCH (28-32) pg RDW (13.2-15.2) % Plt Count (140-440) K/mm3 Lymph % (Auto) (13.4-35.0) % Amador % (Auto) (0.0-7.3) % Lymph # (Auto) (1.2-5.4) K/mm3 Seg Neutrophils % (40.0-70.0) % PT (12.2-14.9) Sec. INR (0.87-1.13) Sodium (137-145) mmol/L Potassium (3.6-5.0) mmol/L Carbon Dioxide (22-30) mmol/L Creatinine (0.6-1.2) mg/dL Glucose (65-100) mg/dL POC Glucose (70-105) mg/dL Lactic Acid (0.7-2.0) mmol/L Calcium (8.4-10.2) mg/dL Total Bilirubin 2.30 H (0.1-1.2) mg/dL Direct Bilirubin 1.8 H (0-0.2) mg/dL AST 1298 H (5-40) units/L ALT 1896 H (7-56) units/L Alkaline Phosphatase 134 H (35-129) units/L Albumin 3.3 L (3.9-5) g/dL Ur Specific Se[place] (1.003-1.030) Salicylates (2.8-20.0) mg/dL Acetaminophen (10.0-30.0) ug/mL - Imaging and Cardiology Chest x-ray: report reviewed, image reviewed (no pneumonia) Assessment and Plan Cultures: 10/10/2021 blood culture: No growth A/P: 41-year-old female with diabetes came into the emergency room with complaints of worsening infection in her right leg. She reports a possible spider bite about a month ago the right leg, treated developed an infection and was [place] [facility] [place] then received a second round of antibiotics from her PCP: #RLE cellulitis: Superficial wound present, nonhealing probably due to poorly controlled diabetes. X-ray without any evidence of long bone osteomyelitis. #Acute hepatic failure: likely from Tylenol toxicity. Was initiated on N- acetylcysteine. #Acute thrombocytopenia #Diabetes, poorly controlled Recs: -Continue ceftriaxone, vancomycin for now. Will also need wound care as outpt -CK ordered -Monitor LFTs (including bilirubin, albumin), f/u GI consult, if continues to worsen, may need transfer to a transplant center Balaji Ugalde MD, FACP, [facility] ([facility] O: [phone] F: [phone]
[2021-10-11] MEDS ORDERED: oxyCODONE /ACETAMINOPHEN 5-325MG TAB PO PRN (14:00)
[2021-10-11] MEDS: cefTRIAXone/NS 1 GM/50 ML 1 GM/50 ML BAG IV SCH (15:04)
[2021-10-11] MEDS ORDERED: ACETADOTE(ACETYLCYSTEINE IV) 10,000 MG in DEXTROSE 5% IN WATER 1,000 ML IV ONE (18:30)
[2021-10-11] MEDS: ONDANSETRON 4 MG/2 ML INJ IV PRN (23:05)
[2021-10-12 05:25] LABS: Hematocrit 43.7 % (30.3-42.9); Hemoglobin 13.6 gm/dl (10.1-14.3); Mean Corpuscular HGB Conc 31 % (30-34); Mean Corpuscular Volume 84 fl (79-97); Platelet Count 112 K/mm3 (140-440); Red Blood Count 5.22 M/mm3 (3.65-5.03); Red Cell Distribution Width 15.8 % (13.2-15.2)
[2021-10-12 05:46] LABS: Albumin 3.3 g/dL (3.9-5); Blood Urea Nitrogen 9 mg/dL (7-17); Calcium 7.9 mg/dL (8.4-10.2); Hemolysis Index 7
[2021-10-12 05:52] LABS: BUN/Creatinine Ratio 23
[2021-10-12 06:02] LABS: Alanine Aminotransferase 2758 units/L (7-56)
[2021-10-12 10:46] LABS: Bilirubin,Direct 2.5 mg/dL (0-0.2)
[2021-10-12] MEDS: FAMOTIDINE 20 MG TAB PO SCH ×2 (10:56→22:34)
[2021-10-12 11:03] LABS: INR 5.7 (0.87-1.13)
[2021-10-12] MEDS: LACTULOSE 20 GM/30 ML ORAL LIQD PO SCH ×2 (13:00→18:00)
[2021-10-12] MEDS: cefTRIAXone/NS 1 GM/50 ML 1 GM/50 ML BAG IV SCH (13:00)
--- NOTE | 2021-10-12 13:36 | Gastroenterology Consultation ---
<ROMEO GUO - Last Filed: 10/12/21 13:23> History of Present Illness - Reason for Consult Consult date: 10/12/21 nausea, vomiting - History of Present Illness Mrs. Duncan is a 41 year old female with a past medical history significant for obesity, HTN, DM, and tobacco use who presented with persistent nausea and vomiting x 4 days. She recalls being "bit by a spider" in June and has had a wound at the site on her right lower extremity since despite two separate trails of antibiotic courses. Per patient, her pain had been worsening and she endorses taking 8 Tylenol pills 5x per day for 2 days (10/08-10/09). She presented to the hospital on 10/10 for nausea, vomiting and associated constant, achy epigastric pain for the past 4 days. She was noted to have transaminitis (AST 7788, ALT 6936), elevated Tylenol levels (35.5), elevated INR (now at 5.7 from 1.5). She denies any episodes similar to this in the past, constipation, or diarrhea. Denies fever, chills, sweats. 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 Past History Past Medical History: diabetes, hypertension Past Surgical History: No surgical history, (3 C- Sections), Other (Reviewed) Social history: , lives with family. denies: alcohol abuse Family history: hypertension Medications and Allergies Allergies Allergy/AdvReac Type Severity Reaction Status Date / Time No Known Allergies Allergy Verified 10/10/21 09:25 Home Medications Medication Instructions Recorded Confirmed Last Taken Type No Known Home Medications [No 10/11/21 10/11/21 Unknown History Reported Home Medications] Active Meds: Active Medications Albuterol (Albuterol 2.5 Mg/3 Ml Nebu) 2.5 mg IH Q4HRT PRN PRN Reason: Shortness Of Breath Famotidine (Famotidine 20 Mg Tab) 20 mg PO BID DEANDRE Last Admin: 10/12/21 10:56 Dose: 20 mg Documented by: Ceftriaxone Sodium (Rocephin/Ns 1 Gm/50 Ml) 1 gm in 50 mls @ 100 mls/hr IV Q24H [facility]; Protocol Last Admin: 10/11/21 15:04 Dose: 100 mls/hr Documented by: Lactulose (Lactulose 20 Gm/30 Ml Oral Liqd) 20 gm PO Q6HR [facility] Ondansetron HCl (Ondansetron 4 Mg/2 Ml Inj) 4 mg IV Q8H PRN PRN Reason: Nausea And Vomiting Last Admin: 10/11/21 23:05 Dose: 4 mg Documented by: Oxycodone/Acetaminophen (Oxycodone /Acetaminophen 5-325mg Tab) 1 tab PO Q4HR PRN PRN Reason: Pain, Moderate (4-6) Sodium Chloride (Sodium Chloride 0.9% 10 Ml Flush Syringe) 10 ml IV BID DEANDRE Last Admin: 10/11/21 22:46 Dose: 10 ml Documented by: Sodium Chloride (Sodium Chloride 0.9% 10 Ml Flush Syringe) 10 ml IV PRN PRN PRN Reason: LINE FLUSH Review of Systems - Review of Systems All systems: negative (as per HPI) Exam - Constitutional Vital Signs: Temp Pulse Resp BP Pulse Ox 98.4 F 79 18 106/58 97 10/12/21 12:00 10/12/21 06:00 10/12/21 06:00 10/12/21 06:00 10/12/21 06:00 General appearance: mild distress - EENT Eyes: PERRL, scleral icterus ENT: hearing intact - Neck Neck: supple - Respiratory Respiratory effort: normal Respiratory: bilateral: CTA - Cardiovascular Rhythm: regular Heart Sounds: Present: S1 & S2 Extremities: abnormal (RLE with dressings) - Gastrointestinal General gastrointestinal: Present: soft, non-tender, normal bowel sounds - Neurologic Neurological: alert and oriented x3 - Labs CBC & Chem 7: 10/12/21 04:54 10/12/21 04:54 Lab Results: Laboratory Results - last 24 hr 10/11/21 10/11/21 10/12/21 13:05 23:39 04:54 WBC 9.0 RBC 5.22 H Hgb 13.6 Hct 43.7 H MCV 84 MCH 26 L MCHC 31 RDW 15.8 H Plt Count 112 L PT INR Sodium Potassium Chloride Carbon Dioxide Anion Gap BUN Creatinine Estimated GFR BUN/Creatinine Ratio Glucose Calcium Total Bilirubin Direct Bilirubin Indirect Bilirubin AST ALT Alkaline Phosphatase Ammonia Total Creatine Kinase 60 Total Protein Albumin Albumin/Globulin Ratio Vancomycin Trough 31.5 H 10/12/21 10/12/21 10/12/21 04:54 10:05 10:05 WBC RBC Hgb Hct MCV MCH MCHC RDW Plt Count PT 55.1 H INR 5.70 H* Sodium 138 Potassium 4.5 D Chloride 102.1 Carbon Dioxide 20 L Anion Gap 20 BUN 9 Creatinine 0.4 L Estimated GFR > 60 BUN/Creatinine Ratio 23 Glucose 103 H Calcium 7.9 L Total Bilirubin 2.30 H 3.00 H Direct Bilirubin 2.5 H Indirect Bilirubin 0.5 AST 2320 H 7788 H ALT 2758 H 6936 H Alkaline Phosphatase 147 H 166 H Ammonia Total Creatine Kinase Total Protein 5.8 L 5.9 L Albumin 3.3 L 3.0 L Albumin/Globulin Ratio 1.3 1.0 Vancomycin Trough 10/12/21 10:05 WBC RBC Hgb Hct MCV MCH MCHC RDW Plt Count PT INR Sodium Potassium Chloride Carbon Dioxide Anion Gap BUN Creatinine Estimated GFR BUN/Creatinine Ratio Glucose Calcium Total Bilirubin Direct Bilirubin Indirect Bilirubin AST ALT Alkaline Phosphatase Ammonia 122.0 H Total Creatine Kinase Total Protein Albumin Albumin/Globulin Ratio Vancomycin Trough Assessment and Plan 1. Hepatic failure secondary to Tylenol toxicity patient currently on N- acetylcysteine regimen. Liver enzymes progressively worsening with increasing INR consistent with progressive synthetic dysfunction. - Continue supportive care -Give vitamin K and monitor response Would recommend transfer to liver transplant center in case of worsening hepatic failure Monitor for encephalopathy <PABLITO FELTON R - Last Filed: 10/13/21 13:07> Exam - Constitutional Vital Signs: Temp Pulse Resp BP Pulse Ox 97.8 F 93 H 13 112/58 97 10/12/21 20:00 10/12/21 22:00 10/12/21 22:00 10/12/21 22:00 10/12/21 22:00 - Labs CBC & Chem 7: 10/12/21 04:54 10/12/21 04:54 Lab Results: Laboratory Results - last 24 hr 10/12/21 10/12/21 10/12/21 12:59 12:59 12:59 PT INR ABG pH ABG pCO2 ABG pO2 ABG HCO3 ABG O2 Saturation ABG O2 Content ABG Base Excess ABG Hemoglobin ABG Carboxyhemoglobin ABG Methemoglobin Oxyhemoglobin FiO2 POC Glucose Lactic Acid 4.70 H* Alkaline Phosphatase 177 H Random Vancomycin 6.4 Acetaminophen 10/12/21 10/12/21 10/12/21 12:59 17:45 17:59 PT 52.1 H INR 5.30 H* ABG pH 7.426 ABG pCO2 34.2 ABG pO2 78.0 L ABG HCO3 22.0 ABG O2 Saturation 97.0 ABG O2 Content 18.5 ABG Base Excess -1.7 ABG Hemoglobin 13.7 ABG Carboxyhemoglobin 1.3 ABG Methemoglobin 0.3 Oxyhemoglobin 95.5 FiO2 21 POC Glucose Lactic Acid Alkaline Phosphatase Random Vancomycin Acetaminophen 5.0 L 10/12/21 21:15 PT INR ABG pH ABG pCO2 ABG pO2 ABG HCO3 ABG O2 Saturation ABG O2 Content ABG Base Excess ABG Hemoglobin ABG Carboxyhemoglobin ABG Methemoglobin Oxyhemoglobin FiO2 POC Glucose 136 H Lactic Acid Alkaline Phosphatase Random Vancomycin Acetaminophen Assessment and Plan Pt seen and evaluated on 10/12. Discussed with Dr. Sal. Plan as noted.
--- NOTE | 2021-10-12 14:04 | Progress Note ---
Assessment and Plan Assessment and plan: 41 YO Female with Obesity Hypoventilation Syndrome, DM, Nicotine Dependence presents to ED for evaluation. Patient is confused with diminished cognition at the time my evaluation and provides minimal history. Patient reports "my leg has a hole in it and I do not feel good". Additional history taken by EMS staff, ED staff, as well as the patient who was made available by telephone for interview. As per family the patient was found to have increased weakness and confusion this a.m. EMS was notified and upon arrival the patient was found to be in distress and subsequent transported to [facility] for further care and evaluation of the aforementioned symptoms. The patient was seen and evaluated in the emergency department. All lab and imaging studies reviewed. Patient found to have right lower extremity cellulitis with failure of outpatient oral antibiotic therapy, metabolic acidosis systemic plantar response syndrome, and elevated liver function test secondary to Tylenol toxicity. Poison control notified in the emergency department. Patient initiated on Acetadote 21-hour protocol. No further history is obtainable. Patient has diminished cognition at the time my evaluation but has a positive gag reflex and is able to protect her airway without difficulty. No prior admission for review. No medication listed at time of admission for reconciliation. Advanced care planning conducted in ED. Patient is fully vaccinated against COVID-19. 10/11 patient is resting in the bed, not in any distress, complains of pain in the right leg, she denies any fever or chills, denies nausea vomiting or a bdominal pain. Denies dysuria. Lab results reviewed. 10/12: Ultrasound abdomen and pelvis pending. Discussed extensively [facility] they are awaiting an ICU bed also. Awaiting callback from [facility] to see if they have better sooner bed for this critically ill patient. Of discussed with the patient and also with the significant other about the critical nature of her condition. My understanding is that she is going to be Medicaid pending based off of her son's insurance. Case management working on this. We will continue current management including trending Tylenol level INR and transaminases. We will also continue acetadote Assessment and plan Cellulitis right leg Patient states that she had a spider bite in June on her right leg and since then it has progressed to the present state She states she is took antibiotics as an outpatient with no improvement Wound care consulted She was started on vancomycin IV We will add Rocephin We will request ID consult Blood cultures no growth in 24 hours Metabolic encephalopathy Resolved Patient is alert and oriented x3 Acute hepatic failure secondary to acetaminophen toxicity Mild Transaminitis/elevated INR/thrombocytopenia No old labs to compare with Suspect secondary to acetaminophen toxicity Monitor LFTs Consider GI consult if not trending down Platelets [id number] today Hypokalemia potassium supplements ordered Monitor electrolytes Tobacco abuse Smoking cessation counseling was done 15 mins Thrombocytopenia Secondary Coagulopathy DVT prophylaxis SCDs The high probability of a clinically significant, sudden or life threatening deterioration of the [hepatic] system(s) required my full and direct attention, intervention and personal management. The aggregate critical care time was [50] minutes. This time is in addition to time spent performing reported procedures but includes the following: [x] Data Review and interpretation [x] Patient assessment and monitoring of vital signs [x] Documentation [x] Medication orders and management History Interval history: Patient seen and examined remains lethargic but awake alert and oriented x3. She is still nauseous she tells me she has been taking Tylenol for about 4 months with significant quantities she denies any suicidal ideation. She says this is all secondary to pain Hospitalist Physical - Physical exam Narrative exam: VITAL SIGNS: Reviewed. GENERAL: The patient appears normally developed, morbidly obese vital signs as documented. HEAD: No signs of head trauma. EYES: Pupils are equal. Icteric sclera extraocular motions intact. EARS: Hearing grossly intact. MOUTH: Oropharynx is normal. NECK: No adenopathy, no JVD. CHEST: Chest with clear breath sounds bilaterally. No wheezes, rales, or rhonchi. CARDIAC: Regular rate and rhythm. S1 and S2, without murmurs, gallops, or rubs. VASCULAR: No Edema. Peripheral pulses normal and equal in all extremities. ABDOMEN: Soft, non tender and non distended. No rebound or guarding, and no masses palpated. Bowel Sounds normal. MUSCULOSKELETAL: Good range of motion of all major joints. Extremities without clubbing, cyanosis or edema. NEUROLOGIC EXAM: Alert and oriented x 3 No focal sensory or strength deficits. Speech normal. Follows commands. PSYCHIATRIC: Mood normal. SKIN: Jaundice detail exam as documented in skin assessment - Constitutional Vitals: Temp Pulse Resp BP Pulse Ox 98.4 F 79 18 106/58 97 10/12/21 12:00 10/12/21 06:00 10/12/21 06:00 10/12/21 06:00 10/12/21 06:00 General appearance: Present: no acute distress, well-nourished Results - Labs CBC & Chem 7: 10/12/21 04:54 10/12/21 04:54 Labs: Laboratory Last Values WBC 9.0 K/mm3 (4.5-11.0) 10/12/21 04:54 RBC 5.22 M/mm3 (3.65-5.03) H 10/12/21 04:54 Hgb 13.6 gm/dl (10.1-14.3) 10/12/21 04:54 Hct 43.7 % (30.3-42.9) H 10/12/21 04:54 MCV 84 fl (79-97) 10/12/21 04:54 MCH 26 pg (28-32) L 10/12/21 04:54 MCHC 31 % (30-34) 10/12/21 04:54 RDW 15.8 % (13.2-15.2) H 10/12/21 04:54 Plt Count 112 K/mm3 (140-440) L 10/12/21 04:54 Lymph % (Auto) 11.0 % (13.4-35.0) L 10/11/21 04:53 [place] % (Auto) 7.9 % (0.0-7.3) H 10/11/21 04:53 Eos % (Auto) 0.3 % (0.0-4.3) 10/11/21 04:53 Baso % (Auto) 0.4 % (0.0-1.8) 10/11/21 04:53 Lymph # (Auto) 0.7 K/mm3 (1.2-5.4) L 10/11/21 04:53 [place] # (Auto) 0.5 K/mm3 (0.0-0.8) 10/11/21 04:53 Eos # (Auto) 0.0 K/mm3 (0.0-0.4) 10/11/21 04:53 Baso # (Auto) 0.0 K/mm3 (0.0-0.1) 10/11/21 04:53 Seg Neutrophils % 80.4 % (40.0-70.0) H 10/11/21 04:53 Seg Neutrophils # 5.1 K/mm3 (1.8-7.7) 10/11/21 04:53 PT 55.1 Sec. (12.2-14.9) H 10/12/21 10:05 INR 5.70 (0.87-1.13) H* 10/12/21 10:05 APTT 31.6 Sec. (24.2-36.6) 10/10/21 13:22 VBG pH 7.310 (7.320-7.420) L 10/10/21 10:05 Sodium 138 mmol/L (137-145) 10/12/21 04:54 Potassium 4.5 mmol/L (3.6-5.0) D 10/12/21 04:54 Chloride 102.1 mmol/L (98-107) 10/12/21 04:54 Carbon Dioxide 20 mmol/L (22-30) L 10/12/21 04:54 Anion Gap 20 mmol/L 10/12/21 04:54 BUN 9 mg/dL (7-17) 10/12/21 04:54 Creatinine 0.4 mg/dL (0.6-1.2) L 10/12/21 04:54 Estimated GFR > 60 ml/min 10/12/21 04:54 BUN/Creatinine Ratio 23 % 10/12/21 04:54 Glucose 103 mg/dL (65-100) H 10/12/21 04:54 POC Glucose 109 mg/dL (70-105) H 10/11/21 06:34 Lactic Acid 3.10 mmol/L (0.7-2.0) H* 10/10/21 13:22 Calcium 7.9 mg/dL (8.4-10.2) L 10/12/21 04:54 Total Bilirubin 3.00 mg/dL (0.1-1.2) H 10/12/21 10:05 Direct Bilirubin 2.5 mg/dL (0-0.2) H 10/12/21 10:05 Indirect Bilirubin 0.5 mg/dL 10/12/21 10:05 AST 7788 units/L (5-40) H 10/12/21 10:05 ALT 6936 units/L (7-56) H 10/12/21 10:05 Alkaline Phosphatase 166 units/L (35-129) H 10/12/21 10:05 Ammonia 122.0 umol/L (25-60) H 10/12/21 10:05 Total Creatine Kinase 60 units/L (30-135) 10/11/21 13:05 Total Protein 5.9 g/dL (6.3-8.2) L 10/12/21 10:05 Albumin 3.0 g/dL (3.9-5) L 10/12/21 10:05 Albumin/Globulin Ratio 1.0 % 10/12/21 10:05 Urine Color [place] (Yellow) 10/10/21 Unknown Urine Turbidity Clear (Clear) 10/10/21 Unknown Urine pH 5.0 (5.0-7.0) 10/10/21 Unknown Ur Specific [place] 1.053 (1.003-1.030) H 10/10/21 Unknown Urine Protein 30 mg/dl mg/dL (Negative) 10/10/21 Unknown Urine Glucose (UA) 150 mg/dL (Negative) 10/10/21 Unknown Urine Ketones Neg mg/dL (Negative) 10/10/21 Unknown Urine Blood Neg (Negative) 10/10/21 Unknown Urine Nitrite Neg (Negative) 10/10/21 Unknown Urine Bilirubin Sm (Negative) 10/10/21 Unknown Urine Ictotest Negative (Negative) 10/10/21 Unknown Urine Urobilinogen 2.0 mg/dL (<2.0) 10/10/21 Unknown Ur Leukocyte Esterase Neg (Negative) 10/10/21 Unknown Urine WBC (Auto) 6.0 /HPF (0.0-6.0) 10/10/21 Unknown Urine RBC (Auto) 4.0 /HPF (0.0-6.0) 10/10/21 Unknown U Epithel Cells (Auto) 6.0 /HPF (0-13.0) 10/10/21 Unknown Urine Mucus 1+ /HPF 10/10/21 Unknown Vancomycin Trough 31.5 ug/mL (5.0-20.0) H 10/11/21 23:39 Salicylates < 0.3 mg/dL (2.8-20.0) L 10/10/21 13:22 Acetaminophen 35.5 ug/mL (10.0-30.0) H 10/10/21 13:22 Microbiology: Microbiology 10/10/21 10:05 Peripheral/Venous Blood Culture - Preliminary NO GROWTH AFTER 48 HOURS 10/10/21 10:05 Peripheral/Venous Blood Culture - Preliminary NO GROWTH AFTER 48 HOURS Active Medications - Current Medications Current Medications: Generic Name Dose Route Start Last Admin Trade Name Freq PRN Reason Stop Dose Admin Albuterol 2.5 mg 10/10/21 11:59 Albuterol 2.5 Mg/3 Ml Nebu IH Q4HRT PRN Shortness Of Breath Famotidine 20 mg 10/10/21 22:00 10/12/21 10:56 Famotidine 20 Mg Tab PO 20 mg BID DEANDRE Administration Ceftriaxone Sodium 1 gm in 50 mls @ 100 mls/hr 10/11/21 13:00 10/11/21 15:04 Rocephin/Ns 1 Gm/50 Ml IV 100 mls/hr Q24H DEANDRE Administration Protocol Lactulose 20 gm 10/12/21 13:00 Lactulose 20 Gm/30 Ml Oral Liqd PO Q6HR DEANDRE Ondansetron HCl 4 mg 10/10/21 11:59 10/11/21 23:05 Ondansetron 4 Mg/2 Ml Inj IV 4 mg Q8H PRN Administration Nausea And Vomiting Oxycodone/Acetaminophen 1 tab 10/11/21 14:00 Oxycodone /Acetaminophen 5-325mg Tab PO Q4HR PRN Pain, Moderate (4-6) Sodium Chloride 10 ml 10/10/21 22:00 10/11/21 22:46 Sodium Chloride 0.9% 10 Ml Flush Syringe IV 10 ml BID DEANDRE Administration Sodium Chloride 10 ml 10/10/21 11:59 Sodium Chloride 0.9% 10 Ml Flush Syringe IV PRN PRN LINE FLUSH Nutrition/Malnutrition Assess - Dietary Evaluation Nutrition/Malnutrition Findings: Nutrition Notes Start: 10/11/21 14:15 Freq: Status: Active Protocol: Document 10/11/21 14:15 BROOKS (Rec: 10/11/21 14:17 [email or web address] [id number]) Nutrition Notes 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 Will assess upon further consult or LOS. Burn Absent Trauma Absent
--- NOTE | 2021-10-12 14:08 | Progress Note ---
Assessment and Plan Cultures: 10/10/2021 blood culture: No growth A/P: 41-year-old female with diabetes came into the emergency room with complaints of worsening infection in her right leg. She reports a possible spider bite about a month ago the right leg, treated developed an infection and was treated with oral antibiotics at [facility]. She then received a second round of antibiotics from her PCP: #DARION cellulitis: Superficial wound present, nonhealing probably due to poorly controlled diabetes. X-ray without any evidence of long bone osteomyelitis. #Acute hepatic failure: likely from Tylenol toxicity. Was initiated on N- acetylcysteine. #Acute thrombocytopenia #Diabetes, poorly controlled Recs: -vancomycin level high, hold further vancomycin, continue to monitor levels -ceftriaxone discontinued -transfer to a transplant center ([facility]) given worsening hepatic failure d/w Dr. Sal. Balaji Ugalde MD, FACP, [facility] ([facility]) O: [phone] F: [phone] Subjective Date of service: 10/12/21 Interval history: No fever. No new complaints. Hepatic function has continued to decline. Objective - Exam Narrative Exam: Physical Exam: Constitutional: Alert, cooperative. No acute distress Head, Ears, Nose: Normocephalic, atraumatic. External ears, nose normal Eyes: Conjunctivae/corneas clear. No icterus. No ptosis. Neck: Supple, no meningeal signs Cardiovascular: S1, S2 + Respiratory: Good air entry, clear to auscultation bilaterally GI: Soft, non-tender; bowel sounds normal. No peritoneal signs Musculoskeletal: Right foot with superficial wound, erythema around it no obvious purulence. Dressing + Skin: No rash or abscess Hem/Lymphatic: No palpable cervical or supraclavicular nodes. No lymphangitis Psych: Mood ok. Affect normal Neurological: Awake, alert, oriented. No gross abnormality - Constitutional Vitals: Vital Signs Temp Pulse Resp BP Pulse Ox 98.4 F 79 18 106/58 97 10/12/21 12:00 10/12/21 06:00 10/12/21 06:00 10/12/21 06:00 10/12/21 06:00 Temperature -Last 24 Hours Temperature 98.4 F Temperature 98.2 F Temperature 97.8 F Temperature 98.2 F - Labs CBC & Chem 7: 10/12/21 04:54 10/12/21 04:54 Labs: Abnormal lab results 10/11/21 10/12/21 10/12/21 Range/Units 23:39 04:54 04:54 RBC 5.22 H (3.65-5.03) M/mm3 Hct 43.7 H (30.3-42.9) % MCH 26 L (28-32) pg RDW 15.8 H (13.2-15.2) % Plt Count 112 L (140-440) K/mm3 PT (12.2-14.9) Sec. INR (0.87-1.13) Carbon Dioxide 20 L (22-30) mmol/L Creatinine 0.4 L (0.6-1.2) mg/dL Glucose 103 H (65-100) mg/dL Calcium 7.9 L (8.4-10.2) mg/dL Total Bilirubin 2.30 H (0.1-1.2) mg/dL Direct Bilirubin (0-0.2) mg/dL AST 2320 H (5-40) units/L ALT 2758 H (7-56) units/L Alkaline Phosphatase 147 H (35-129) units/L Ammonia (25-60) umol/L Total Protein 5.8 L (6.3-8.2) g/dL Albumin 3.3 L (3.9-5) g/dL Vancomycin Trough 31.5 H (5.0-20.0) ug/mL 10/12/21 10/12/21 10/12/21 Range/Units 10:05 10:05 10:05 RBC (3.65-5.03) M/mm3 Hct (30.3-42.9) % MCH (28-32) pg RDW (13.2-15.2) % Plt Count (140-440) K/mm3 PT 55.1 H (12.2-14.9) Sec. INR 5.70 H* (0.87-1.13) Carbon Dioxide (22-30) mmol/L Creatinine (0.6-1.2) mg/dL Glucose (65-100) mg/dL Calcium (8.4-10.2) mg/dL Total Bilirubin 3.00 H (0.1-1.2) mg/dL Direct Bilirubin 2.5 H (0-0.2) mg/dL AST 7788 H (5-40) units/L ALT 6936 H (7-56) units/L Alkaline Phosphatase 166 H (35-129) units/L Ammonia 122.0 H (25-60) umol/L Total Protein 5.9 L (6.3-8.2) g/dL Albumin 3.0 L (3.9-5) g/dL Vancomycin Trough (5.0-20.0) ug/mL
[2021-10-12] MEDS ORDERED: ACETADOTE(ACETYLCYSTEINE IV) 10,000 MG in DEXTROSE 5% IN WATER 1,000 ML IV ONE (15:30)
[2021-10-12] MEDS ORDERED: VANCOMYCIN 2,000 MG in SODIUM CHLORIDE 0.9% 500 ML 500 ML IV SCH (16:00)
[2021-10-12 18:19] LABS: ABG Base Excess -1.7 mmol/L (-2.0-3.0); ABG Methemoglobin 0.3 % (0.0-1.5); ABG PCO2 34.2 mm Hg; ABG PH 7.426 pH Units (7.350-7.450)
--- NOTE | 2021-10-12 18:36 | Ultrasound Report ---
ULTRASOUND ABDOMEN, COMPLETE INDICATION: abdominal pain. COMPARISON: None available. FINDINGS: Pancreas: Normal. Abdominal Aorta: Normal. IVC: Normal. Liver: Normal. Gallbladder: Partially contracted. Bile ducts: Normal. Common Bile Duct measures 3 mm. Right Kidney: Normal. Left Kidney: Normal. Spleen: Normal. Free fluid: None. Additional Findings: None. IMPRESSION: No acute abnormality. Signer Name: Reginald Byers MD Signed: 10/12/2021 6:31 PM Workstation Name: [id number]
[2021-10-12] MEDS ORDERED: PHYTONADIONE(ADULT ONLY) 10 MG in SODIUM CHLORIDE 0.9% 50 ML IV ONE (18:45)
[2021-10-12 18:54] LABS: INR 5.3 (0.87-1.13)
--- NOTE | 2021-10-12 19:14 | Discharge Summary ---
Providers - Providers Date of Admission: 10/10/21 11:59 Attending physician: DIANE RODRIGUEZ MD 10/10/21 19:24 Consult to Wound/ET Nurse [CONS] Routine Reason For Exam: wound eval 10/11/21 12:20 Consult to Physician [CONS] Routine Comment: noted/ guru Consulting Provider: ANNETTE STOUT Physician Instructions: Reason For Exam: Cellulitis 10/12/21 07:55 Consult to Physician [CONS] Routine Comment: Consulting Provider: SANTOSH POWELL Physician Instructions: Reason For Exam: transaminities Primary care physician: ARTHUR FIORE MD Hospitalization Condition: Stable Disposition: 02 SHORT [facility] Exam - Constitutional Vitals: Temp Pulse Resp BP Pulse Ox 98.9 F 90 17 102/56 98 10/12/21 16:00 10/12/21 12:01 10/12/21 12:01 10/12/21 18:00 10/12/21 18:00 Plan Activity: advance as tolerated, fall precautions Follow up with: PRIMARY MD ADEBAYO [Primary Care Provider] - 7 Days
[2021-10-12 22:53] VITALS: BP 112/58
== END 2021-10-12 22:55 | disposition short-term general hospital (02) | DRG 602 ==
LOC: ED 07:43 → OBSVTOIN 11:59 → 3A 11:59 → IMCU 13:27
PROVIDERS: ADMIT Internal Medicine; ATTEND Internal Medicine
DX: L03.115 Cellulitis of right lower limb (principal); G93.41 Metabolic encephalopathy; E87.2 Acidosis; R65.10 Systemic inflammatory response syndrome (SIRS) of non-infectious origin without acute organ dysfunction; L97.919 Non-pressure chronic ulcer of unspecified part of right lower leg with unspecified severity; F17.200 Nicotine dependence, unspecified, uncomplicated; T39.1X5A Adverse effect of 4-Aminophenol derivatives, initial encounter; K71.10 Toxic liver disease with hepatic necrosis, without coma; E11.9 Type 2 diabetes mellitus without complications; Y92.89 Other specified places as the place of occurrence of the external cause; I10 Essential (primary) hypertension; E87.6 Hypokalemia; D69.6 Thrombocytopenia, unspecified; Z20.822 Contact with and (suspected) exposure to COVID-19
CPT/HCPCS: 36415; 36600; 71045; 76700; 80048; 80053; 80076; 80202; 80320; 81001; 82140; 82550; 82803; 82805; 82962; 84075; 85025; 85027; 85610; 85730; 87040; G0378; J3490; J7060; Q0162; G0480; J0132; J0360; J0696; J1170; J2405; J3370; J3430; J7030; J7040; J7070